=== PATIENT | female | born 1995 | race Caucasian/White ===

== ENCOUNTER 2020-05-13 00:12 | Emergency (ER) | payer OTHER ==
[2020-05-13 00:27] VITALS: BP 127/66; PULSE 81; TEMP 97.2; BMI 32.9
--- OUTSIDE RECORDS SUMMARY | 2020-05-13 00:29 | XMS ---
:1995 Author Organization [facility] Support Name Relationship Address Phone [facility] [address] [place] [address] OUMOU FRIED SISTER [address] [place] [address] Re-disclosure Warning The records that you are about to access may contain information from federally- assisted alcohol or drug abuse programs. If such information is present, then the following federally mandated warning applies: This information has been disclosed to you from records protected by federal confidentiality rules (42 CFR part 2). The federal rules prohibit you from making any further disclosure of this information unless further disclosure is expressly permitted by the written consent of the person to whom it pertains or as otherwise permitted by 42 CFR part 2. A general authorization for the release of medical or other information is NOT sufficient for this purpose. The Federal rules restrict any use of the information to criminally investigate or prosecute any alcohol or drug abuse patient.The records that you are about to access may contain highly sensitive health information, the redisclosure of which is protected by Article 27-F of the [facility] Public Health law. If you continue you may haveaccess to information: Regarding HIV / AIDS; Provided by facilities licensed or operated by the [facility] Office of Mental Health; or Provided by the [facility] Office for People With Developmental Disabilities. If such information is present, then the following [facility] mandated warning applies: This information has been disclosed to you from confidential records which are protected by state law. State law prohibits you from making any further disclosure of this information without the specific written consent of the person to whom it pertains, or as otherwise permitted by law. Any unauthorized further disclosure in violation of state law may result in a fine or half-way sentence or both. A general authorization for the release of medical or other information is NOT sufficient authorization for further disclosure. Insurance Providers Payer name Policy type Policy ID Covered Covered democrat's Policy P flavio / Coverage democrat ID relationship to [employer] orm[employer] type lind JUANITA [id number] [facility] NON CAP
--- NOTE | 2020-05-13 00:31 | PDOC ---
*Physical Exam - Vital Signs Last Vital Signs Temp Pulse Resp BP Pulse Ox 97.2 F L 81 18 127/66 97 05/13/20 00:17 05/13/20 00:17 05/13/20 00:17 05/13/20 00:17 05/13/20 00:17 Medical Decision Making - Medical Decision Making 05/13/20 00:31 Patient seen by the advanced practice provider under my supervision. Ancillary testing reviewed as necessary. I agree with plan as outlined by the advanced practice provider. Discharge - Discharge Information Problems reviewed: Yes Clinical Impression/Diagnosis: Rash and nonspecific skin eruption Eczema Qualifiers: Eczema type: unspecified Qualified Code(s): L30.9 - Dermatitis, unspecified Disposition: HOME - Additional Discharge Information Prescriptions: Hydroxyzine HCl 25 mg PO TID PRN #20 tablet PRN Reason: For Itching Hydrocortisone 1% Cream [Hytone 1% Cream -] 1 applic TP TID #1 tube Methylprednisolone [Medrol Dose Alejandro] 4 mg PO ASDIR #21 tablet - Follow up/Referral - Patient Discharge Instructions Patient Printed Discharge Instructions: Eczema - Post Discharge Activity Work/Back to School Note: Back to Work
--- NOTE | 2020-05-13 00:51 | PDOC ---
History of Present Illness - General Chief Complaint: Rash Stated Complaint: RASH Time Seen by Provider: 05/13/20 00:28 History Source: Patient - History of Present Illness Initial Comments: 05/13/20 01:31 24-year-old female complaining of generalized rash/eczema for months getting worse over the last 1 week. Patient reports that she normally puts Aquaphor on it with no significant improvement patient was seen in urgent care and was given steroids symptoms came back. Patient is awaiting appointment with dermatology. Patient reports persistent pruritus to trunk abdomen arms and thigh. Patient cueto s no rash interphalangeal area axillary or groin Past History - Medical History Allergies/Adverse Reactions: Allergies Allergy/AdvReac Type Severity Reaction Status Date / Time No Known Allergies Allergy Verified 05/13/20 01:00 Home Medications: Ambulatory Orders Hydrocortisone 1% Cream [Hytone 1% Cream -] 1 applic TP TID #1 tube 05/13/20 Hydroxyzine HCl 25 mg PO TID PRN #20 tablet 05/13/20 Methylprednisolone [Medrol Dose Alejandro] 4 mg PO ASDIR #21 tablet 05/13/20 COPD: No - Reproductive History Is Patient Now?: No - Psycho-Social/Smoking History Smoking History: Never smoked - Substance Abuse Hx (Audit-C & DAST Scrn) How often the patient has a drink containing alcohol: Never Score: In Men: 4 or > Positive; In Women: 3 or > Positive: 0 Screen Result (Pos requires Nsg. Audit-10AR): Negative In the last yr the pt used illegal drug/Rx for NonMed reason: No Score: Yes response is considered Positive: 0 Screen Result (Positive result requires Nsg. DAST-10): Negative Review of Systems - Review of Systems Able to Perform ROS?: Yes Is the patient limited Pashto proficient: No Integumentary: Yes: Rash *Physical Exam - Vital Signs Last Vital Signs Temp Pulse Resp BP Pulse Ox 97.2 F L 81 18 127/66 97 05/13/20 00:17 05/13/20 00:17 05/13/20 00:17 05/13/20 00:17 05/13/20 00:17 - Physical Exam General Appearance: Yes: Appropriately Dressed Integumentary: positive: Rash (eczematic rash to antecubital to b/l arm chest thighs) Neurologic: positive: Fully Oriented, Alert, Normal Mood/Affect ED Progress Note - Progress Note Progress Note: 05/13/20 01:36 A: eczema/ rash P: hydroxyzine atarax outpatient derm appointment pending. Discharge - Discharge Information Problems reviewed: Yes Clinical Impression/Diagnosis: Rash and nonspecific skin eruption Eczema Qualifiers: Eczema type: unspecified Qualified Code(s): L30.9 - Dermatitis, unspecified Disposition: HOME - Additional Discharge Information Prescriptions: Hydroxyzine HCl 25 mg PO TID PRN #20 tablet PRN Reason: For Itching Hydrocortisone 1% Cream [Hytone 1% Cream -] 1 applic TP TID #1 tube Methylprednisolone [Medrol Dose Alejandro] 4 mg PO ASDIR #21 tablet - Follow up/Referral - Patient Discharge Instructions Patient Printed Discharge Instructions: Eczema - Post Discharge Activity Work/Back to School Note: Back to Work
[2020-05-13] MEDS ORDERED: hydrOXYzine PAMOATE 50 MG CAPSULE (FP) PO ONE (00:52)
[2020-05-13] MEDS ORDERED: hydrOXYzine PAMOATE 25 MG CAPSULE (FP) PO ONE (01:02)
== END 2020-05-13 01:35 | disposition home or self-care (01) ==
LOC: JER 00:12
DX: R21 Rash and other nonspecific skin eruption (principal); L30.9 Dermatitis, unspecified
CPT/HCPCS: 99284-25